=== PATIENT | female | born 1975 | race Caucasian/White ===

== ENCOUNTER 2019-03-05 17:43 | Inpatient (IN) | payer MEDICARE, SELFPAY ==
[2019-03-05 17:45] VITALS: BP 116/76; PULSE 97; RESP 24; TEMP 36.6; O2SAT 98; BMI 24.7
--- NOTE | 2019-03-05 18:14 | ED.DCSUM_ITS ---
- ER Visit Summary Date of Service: 03/05/19 Chief Complaint: Detox History of Present Illness: The patient is a 43 F who presents requesting detox from fentanyl. Patient states she uses at least 1 g per dose 4-5 times per day. Patient states her last use was approximately 2 hours prior to arrival. Damaris nt denies any suicidal homicidal ideations. Patient states she has chronic back pain. Patient denies any chest pain but admits to some shortness of breath. Patient denies any nausea or vomiting. Physical Examination: Vital signs are stable. Patient is afebrile. Patient is in no acute distress. Oral mucosa is pink and moist. Neck is supple. Trachea is midline. There is no JVD noted. Heart was regular rate and rhythm. Lungs are clear and equal bilateral. Abdomen is soft. Bowel sounds are normal. There is no tenderness. There is no guarding noted. Skin is warm dry. Cranial nerves II through XII are intact. There are no focal motor or sensory deficits noted. The remaining physical exam is within normal limits. Test Results: CBC and comprehensive metabolic profile within normal limits. Urinalysis does not show any evidence of urinary tract infection. Urine tox screen was positive for opiates. Serum alcohol level was obtained and is pending. Emergency Department Course and Treatment: Patient was given a dose of clonidine here. Case was discussed with the hospitalist. Patient will be admitted to the hospital. Disposition: Admit to hospital Impression: Substance abuse This note was generated with [employer] dictation software. It may contain incorrect words, spelling, and punctuation that were not noted in review of the chart prior to signing ED Disposition - Plan for ED Patient: Disposition: Acute Care Hospital [facility] Referrals: Christiano Huntley,Out of [Primary Care Provider] -
[2019-03-05 18:31] LABS: Bacteria 0 SEEN /hpf (None Seen); Mucous, Urine 0 SEEN /hpf (<or=2+); White Blood Cells 0 SEEN /hpf (0-5)
[2019-03-05 18:32] LABS: Color, Urine Yellow (Yellow); Glucose, Dipstick Normal (Normal); Ketone-Dipstick Negative (Negative); Leukocyte Esterase-Dipstick 25 /ul (Negative); Nitrite-Dipstick Negative (Negative); Occult Blood-Urine 10 /ul (Negative); Protein-Dipstick Negative (Negative); Specific Gravity, Urine 1.015 (1.002-1.030); Urine Bilirubin Dipstick Negative (Negative); Urine Clarity Clear (Clear); Urine Urobilinogen Normal (Normal)
[2019-03-05 18:40] LABS: Red Blood Cells-Urine 0-5 SEEN /hpf (0-5); Squamous Epithelial Cells - UA 0-5 SEEN /hpf (5-10)
[2019-03-05 18:55] LABS: Amphetamine Urine VISTA NEGATIVE (<1000 ng/mL); Barbiturate Urine VISTA NEGATIVE (< 200 ng/mL); Benzodiazepine Urine VISTA NEGATIVE (< 200 ng/mL); Cocaine Urine VISTA NEGATIVE (< 300 ng/mL); Ecstacy Urine VISTA NEGATIVE (< 500 ng/mL); Methadone Urine VISTA NEGATIVE (< 300 ng/mL); PCP Urine VISTA NEGATIVE (< 25 ng/mL); THC Urine VISTA NEGATIVE (< 50 ng/mL); Vista UDS pH Range 5
--- NOTE | 2019-03-05 19:10 | RAD_ITS ---
STUDY: X-RAY CHEST REASON FOR EXAM: Female, 43 years old. Shortness of breath. TECHNIQUE: PA and lateral views of the chest. COMPARISON: None. FINDINGS: The lungs are clear and expanded. There is no demonstrated pleural abnormality. Normal size heart. Normal mediastinum and rachna. Normal visualized pulmonary arteries. Normal visualized aortic arch and descending thoracic aorta. Normal visualized thoracic spine. There is mild anterior wedging of the L1 vertebra, age uncertain. Normal visualized ribs, clavicles, and shoulders. There is no demonstrated abnormality of the visualized soft tissue structures of the upper abdomen. RAD/Chest PA and Lateral IMPRESSION: 1. No acute cardiopulmonary disease. 2. Mild anterior wedging of the L1 vertebra, age uncertain. Electronically Signed: Edgardo Ayala MD at 19:26 EDT , Service support ,
[2019-03-05 19:15] LABS: Absolute Lymphocyte Count 3.78 X10^3/ul (0.83-4.51); Basophil# 0.03 X10^3/uL; Basophil% 0.3 % (0-1); Eosinophil# 0.21 X10^3/uL; Eosinophils% 2.4 % (0-5); Hematocrit 38.2 % (37-47); Hemoglobin 12.4 g/dl (12.0-15.0); Lymphocyte # 3.78 X10^3/ul (4.0); Lymphocyte % 42.7 % (19-41); Mean Corp Hgb Conc 32.5 g/gl (32-36); Mean Corpuscular Hgb 29.4 pg (27.0-32.0); Mean Corpuscular Volume 90.5 fL (81-99); Mean Platelet Vol. 9.5 fl (6.2-12.0); Monocyte# 0.88 X10^3/uL; Monocyte% 9.9 % (0-10); Neutrophil # 3.95 X10^3/uL (2.7-7.7); Neutrophil % 44.6 % (47-70); Platelet Count 269 K/mm3 (150-450); RBC Distribution Width CV 14.9 % (11.6-14.6); RBC Distribution Width SD 49.4 fl (35.1-43.9); Red Blood Count 4.22 M/mm3 (4.2-5.4); White Blood Count 8.9 K/mm3 (4.4-11.0)
[2019-03-05 19:16] LABS: POSITIVE COUNT NO; POSITIVE DIFFERENTIAL NO; POSITIVE MORPHOLOGY NO
[2019-03-05 19:29] LABS: ALB/GLOB Ratio 0.7 RATIO (0.9-2.4); AST(SGOT) 48 U/L (15-37); Alanine Aminotransfer ALT/SGPT 31 U/L (13-56); Albumin, Serum 3.2 g/dL (3.2-5.0); Alkaline Phosphatase 93 U/L (45-117); Anion Gap 5 (5-15); BUN 13 mg/dL (7-18); BUN/Creat Ratio 19.2 RATIO (10-20); Calcium,Total 8.7 mg/dL (8.5-10.1); Chloride 107 mmol/L (98-107); Creatinine, Serum 0.68 mg/dL (0.55-1.02); EST Glomerular Filtration Rate 101 mL/min (>60); Est Glom Filt Rate - Afr Amer 122 mL/min (>60); Estimated Creatinine Clearance 103.74 ml/min; Globulin 4.4 g/dL (2.2-4.2); Glucose 115 mg/dL (74-106); Potassium 4.5 mmol/L (3.5-5.1); Protein, Total 7.6 g/dL (6.4-8.2); Sodium Level 138 mmol/L (136-145)
[2019-03-05 19:33] VITALS: BMI 24.0
[2019-03-05] MEDS: cloNIDine HCl 0.1 MG Tablet PO (19:45)
[2019-03-05 19:51] VITALS: BP 118/78; PULSE 87; RESP 16; O2SAT 97
[2019-03-05 21:27] VITALS: RESP 16; O2SAT 98
--- NOTE | 2019-03-05 21:28 | PCM.HP.STD ---
Problem List (1) Opiate abuse, continuous Status: Chronic (2) Anxiety and depression Status: Chronic (3) IV drug abuse Status: Chronic (4) Hepatitis C Status: Chronic Qualifiers: Viral hepatitis chronicity: unspecified Hepatic coma status: without hepatic coma Qualified Code(s): B19.20 - Unspecified viral hepatitis C without hepatic coma (5) Tobacco use Status: Chronic (6) Asthma with COPD Status: Chronic (7) GERD (gastroesophageal reflux disease) Status: Chronic Qualifiers: Esophagitis presence: esophagitis presence not specified Qualified Code(s): K21.9 - Gastro-esophageal reflux disease without esophagitis History of Present Illness Date of Admission: 03/05/19 Chief Complaint: Opiate abuse, Withdrawal The patient is a 43 y/o F w/ PMHx: Anxiety and Depression/Bipolar disorder, Asthma/COPD, Tobacco use, Allergic Rhinitis, GERD, Hepatitis C, History of alcohol abuse now sober times 5 years, polysubstance abuse (prior history alcohol abuse, cannabis abuse, crack cocaine, heroin IV) w/ currently ongoing usage of IV fentanyl with at least 1 g daily with last usage approximately 2 PM on day of ED presentation with initial presentation to the ED without market withdrawal symptoms with administration of oral clonidine; however, upon evaluation patient continued to be interested in withdrawal treatment and noted onset of abdominal cramping and discomfort with nausea without emesis, fatigue, mild restlessness, hot and cold flashes, sweating. She notes that normally when she is in severe withdrawal she does have market emesis and has not had this as of yet. Work-up in the ED included T 97.8, heart rate 97, BP 116/76, respiratory rate 24, 98% on room air, CBC with WBC 8.9, heme globin 12.4, platelet 269 without market shift, CMP with glucose 115, AST/ALT 48/31, urinalysis unremarkable, UDS with positive opiate, pending alcohol level, chest x-ray with no acute cardiopulmonary disease was noted incidental mild anterior wedging L1 vertebra of unclear age. In the ED patient administered oral clonidine 0.1 mg x1. Past Medical History Past Medical History (Chronic Problems): Chronic Problems Opiate abuse, continuous (Chronic) Anxiety and depression (Chronic) IV drug abuse (Chronic) Hepatitis C (Chronic) Tobacco use (Chronic) Asthma with COPD (Chronic) GERD (gastroesophageal reflux disease) (Chronic) Allergies morphine Allergy (Verified 03/05/19 17:47) Rash Home Medications: Ambulatory Orders Medication Instructions Recorded Albuterol Inhaler [Ventolin Hfa] 2 puff INHALATION PRN PRN 03/05/19 Budesonide/Formoterol Fumarate 2 puff INHALATION BID 03/05/19 [Symbicort 160-4.5 Mcg Inhaler] Fluoxetine [Prozac] 10 mg PO DAILY 03/05/19 Fluticasone 0.05% [Flonase Nasal 1 spray NASAL BID 03/05/19 [place]] Gabapentin 800 mg PO TID 03/05/19 Loratadine/Pseudoephedrine 1 tab PO DAILY 03/05/19 [Alavert D-12 Allergy-Sinus Tab] Montelukast Sodium [Singulair] 10 mg PO QHS 03/05/19 Pantoprazole Sodium [Protonix] 20 mg PO BID 03/05/19 Quetiapine Fumarate [Seroquel] 200 mg PO QHS 03/05/19 Surgical History: - - Tonsillectomy, bilateral tubal ligation, history of trauma with left upper extremity as well as left lower extremity hardware and intervention. Psychiatric History: Anxiety, Depression [employer] History: No pertinent [employer] history Lives: Spouse/ Significant Other - Patient lives with a significant who is also a substance abuser which was discussed at length. Discussed that patient for best outcome would necessitate not returning to this living situation and best if not return to this relationship at this time. Smoking Status: Current every day smoker - 1 pack/day cigarette tobacco usage. Tobacco Use: Cigarettes Alcohol: Sober - Patient has been sober times 5 years. Drugs: - - Patient has a history of polysubstance abuse with several agents but has been using consistently for several months to years now IV fentanyl. - *Family History Maternal History Items: - - Patient notes a maternal family history of diabetes and hypertension. Paternal History Items: - - Patient notes a paternal family history of hypertension and hyperlipidemia. Review of Systems Constitutional: Reports: Anorexia, Chills, Malaise, Weakness, Fatigue. Denies: Fever, Weight Change HEENT: Reports: Nasal Congestion, Post Nasal Drip, Sinus Drainage. Denies: Head Aches, Sinus Congestion Cardiovascular: Denies: Chest Pain, Palpitations Respiratory: Denies: Cough, Shortness of breath at rest, Sputum production Gastrointestinal: Reports: Abdominal Pain, Nausea. Denies: Vomiting Genitourinary: Denies: Dysuria Musculoskeletal: Reports: Joint Pain. Denies: Joint Tenderness Skin: Denies: Rash, Wounds Neurological: Denies: Numbness, Tingling, Focal weakness Psychiatric: Reports: Anxiety, Depression. Denies: Homicidal Ideations, Suicidal Ideations Endocrine: Reports: Heat/ Cold Intolerance Hematologic/ Lymphatic: Denies: Easy Bruising, Easy Bleeding VTE Information - Inpt Only VTE Present on Admission: No VTE Mechan Device Prophylaxis: None VTE Pharm Prophylaxis ordered?: No Reason prophylaxis not ordered:: Treatment Not Indicated Subjective: Seated upright in the ED bed, fatigued appearance, notes ongoing abdominal cramping and very mild nausea at this time. Objective: Physical Examination: General: awake, alert, oriented x 3 and cooperative, seated upright in bed in no apparent distress, notes withdrawal symptoms have increased but upon ED presentation had recently used IV fentanyl. Skin: normal color, turgor, no icterus, cyanosis except notable ecchymoses and track ryan primarily to the upper extremities. HEENT: AT/NC, EOMI, PERRLA, mildly dry MM, no carotid bruits or JVD noted. Lungs: CTA bilaterally, moderate effort, mild decrease BL bases, no rales, ronchi or wheezing. Heart: Regular rate and rhythm; no gallop, rub audible. Abdomen: soft, NTTP, ND, hyperactive BS, no HSM. Extremities: no cyanosis, clubbing, or edema. Neurological: patient awake, alert, oriented x 3; cognitive function intact; pupils equally reactive to light and accomodation; cranial nerves II-XII grossly normal, moving all 4 extremities, no focal deficits, strength mildly globally decreased. Psychiatric: affect appears fatigued, no acute evidence of depressive or anxiety feelings. - Physical Exam Vital Signs Temp Pulse Resp BP Pulse Ox 97.8 F 87 16 118/78 98 03/05/19 17:45 03/05/19 19:51 03/05/19 21:27 03/05/19 19:51 03/05/19 21:27 Oxygen Delivery Method Room Air Weight: 157 lb 10.088 oz Body Mass Index (BMI) 24.7 Laboratory Tests Past 24 Hrs 03/05/19 03/05/19 03/05/19 18:00 18:00 18:45 WBC 8.9 RBC 4.22 Hgb 12.4 Hct 38.2 MCV 90.5 MCH 29.4 MCHC 32.5 RDW 14.9 H RDW Differential 49.4 H Plt Count 269 MPV 9.5 Immature Gran % (Auto) 0.100 Neut % (Auto) 44.6 L Lymph % (Auto) 42.7 H [facility] % (Auto) 9.9 Eos % (Auto) 2.4 Baso % (Auto) 0.3 Absolute Neuts (auto) 4.0 Absolute Lymphs (auto) 3.78 Total Counted Not Reportable Sodium Potassium Chloride Carbon Dioxide Anion Gap BUN Creatinine Estim Creat Clear Calc Est GFR (MDRD) Af Amer Est GFR (MDRD) Non-Af BUN/Creatinine Ratio Glucose Calcium Total Bilirubin AST ALT Alkaline Phosphatase Total Protein Albumin Globulin Albumin/Globulin Ratio Urine Color Yellow Urine Clarity Clear Urine pH 6.0 Ur Specific [place] 1.015 Urine Protein Negative Urine Glucose (UA) Normal Urine Ketones Negative Urine Occult Blood 10 H Urine Nitrite Negative Urine Bilirubin Negative Urine Urobilinogen Normal Ur Leukocyte Esterase 25 H Urine RBC 0-5 SEEN Urine WBC 0 SEEN Ur Squamous Epith Cells 0-5 SEEN Urine Bacteria 0 SEEN Urine Mucus 0 SEEN Urine Opiates Screen POSITIVE H Urine Methadone Screen NEGATIVE Ur Barbiturates Screen NEGATIVE Ur Phencyclidine Scrn NEGATIVE Ur Amphetamines Screen NEGATIVE U Methamphetamin-MDMA NEGATIVE U Benzodiazepines Scrn NEGATIVE Urine Cocaine Screen NEGATIVE U Cannabinoids Screen NEGATIVE Ur Drug Screen Comment Ethyl Alcohol 03/05/19 03/05/19 03/05/19 18:45 18:45 20:10 WBC RBC Hgb Hct MCV MCH MCHC RDW RDW Differential Plt Count MPV Immature Gran % (Auto) Neut % (Auto) Lymph % (Auto) [facility] % (Auto) Eos % (Auto) Baso % (Auto) Absolute Neuts (auto) Absolute Lymphs (auto) Total Counted Sodium 138 Potassium 4.5 Chloride 107 Carbon Dioxide 26.0 Anion Gap 5 BUN 13 Creatinine 0.68 Estim Creat Clear Calc 103.74 Est GFR (MDRD) Af Amer 122 Est GFR (MDRD) Non-Af 101 BUN/Creatinine Ratio 19.2 Glucose 115 H Calcium 8.7 Total Bilirubin 0.20 AST 48 H ALT 31 Alkaline Phosphatase 93 Total Protein 7.6 Albumin 3.2 Globulin 4.4 H Albumin/Globulin Ratio 0.7 L Urine Color Urine Clarity Urine pH Ur Specific [place] Urine Protein Urine Glucose (UA) Urine Ketones Urine Occult Blood Urine Nitrite Urine Bilirubin Urine Urobilinogen Ur Leukocyte Esterase Urine RBC Urine WBC Ur Squamous Epith Cells Urine Bacteria Urine Mucus Urine Opiates Screen Urine Methadone Screen Ur Barbiturates Screen Ur Phencyclidine Scrn Ur Amphetamines Screen U Methamphetamin-MDMA U Benzodiazepines Scrn Urine Cocaine Screen U Cannabinoids Screen Ur Drug Screen Comment Ethyl Alcohol Cancelled Pending Assessment/Plan The patient is a 43 y/o F w/ PMHx: Anxiety and Depression/Bipolar disorder, Asthma/COPD, Tobacco use, Allergic Rhinitis, GERD, Hepatitis C, History of alcohol abuse now sober times 5 years, polysubstance abuse w/ currently ongoing usage of IV fentanyl with at least 1 g daily with last usage approximately 2 PM on day of ED presentation with initial presentation to the ED without market withdrawal symptoms with administration of oral clonidine; however, upon evaluation patient continued to be interested in withdrawal treatment and noted onset of abdominal cramping and discomfort with nausea without emesis, fatigue, mild restlessness, hot and cold flashes, sweating. (1) Acute Opiate Withdrawal: Will admit to MS, given currently only mild withdrawal appearance and timeline of last intake unclear, will admit as observation per discussion with supervising industrial staff nurse, routine labs obtained in the ED, given now onset of withdrawal symptoms, will initiate and continue on [facility] service protocol with tapering course of Subutex, as needed Seroquel, Librium, Sinemet, Catapres, Bentyl, Vistaril, IV fluids, IV antiemetics, Tylenol as needed for pain. Once patient clinically improved and completion of taper nearing will plan [facility] assistance for transition to next level of rehabilitation care. (2) Polysubstance Abuse, IVDA Hx, History of Hepatitis C, Chronic: Patient currently not candidate for hep C treatment currently as needs to be clean, sober x 6 months, documented attendance NA or AA meetings, counseling and ongoing negative drug screens. Once appropriate GI, ID to initiate. HIV, hepatitis panel to assess for co-infection pending. Encouraged PCP establishment and follow-up. (3) Tobacco Abuse: Encouraged cessation, inpatient consultation per RT, NR if desired. (4) Chronic Asthma/COPD: ATC duonebs, PRN albuterol, HOB, IS parameters. (5) Anxiety and depression/bipolar disorder: Continue home Prozac, Seroquel regimen. (6) Allergic rhinitis: Continue home Singulair. Given patient abuse history recommendation for discontinuation of pseudoephedrine on a routine basis. (7) GERD: PPI. (8) DVT Prophylaxis: Low risk, ambulation. Code Visit OBSV E&M: 96656 Initial observation care L3
[2019-03-05 21:38] LABS: Alcohol, Blood (Medical)-Serum < 3.0 mg/dL
[2019-03-05 23:42] VITALS: BMI 25.4
[2019-03-05 23:47] VITALS: BMI 25.4
[2019-03-06] VITALS (10 sets, daily range): BP systolic 111–125; BP diastolic 57–73; PULSE 82–107; RESP 16–22; TEMP 36.5–36.8; O2SAT 94–97
[2019-03-06] MEDS: Methocarbamol 750 MG Tablet PO ×3 (00:53→13:10)
[2019-03-06] MEDS: chlordiazePOXIDE 25 MG Capsule PO ×6 (00:53→20:53)
[2019-03-06] MEDS: Buprenorphine HCl 2 MG TAB.SUBL SL ×3 (00:53→17:14)
[2019-03-06 01:19] LABS: HIV - WCH Non-Reactive (Nonreactive)
[2019-03-06] MEDS: Gabapentin 800 MG Tablet PO ×3 (05:13→22:10)
[2019-03-06] MEDS: Ondansetron ODT 4 MG Tablet PO ×2 (05:13→13:09)
[2019-03-06] MEDS: Ipratropium/Albuterol Sulfate 3 ML AMPUL.NEB INHALATION ×3 (06:37→19:05)
[2019-03-06] MEDS: Dicyclomine 10 MG Capsule 20 MG PO ×2 (07:20→17:14)
[2019-03-06] MEDS: Pramipexole Di-HCl 0.25 MG Tablet PO (07:20)
[2019-03-06] MEDS: Pantoprazole Sodium 20 MG Tablet PO ×2 (09:21→22:10)
[2019-03-06] MEDS: Fluticasone 0.05% 1 SPRAY NASAL.SRY NASAL ×2 (09:22→22:10)
[2019-03-06] MEDS: FLUoxetine 10 MG Capsule PO (09:22)
[2019-03-06] MEDS: Ibuprofen 600 MG Tablet PO ×2 (09:25→20:56)
[2019-03-06] MEDS: cloNIDine HCl 0.1 MG Tablet PO (13:10)
--- NOTE | 2019-03-06 16:24 | PCM.PROGNOTE ---
Subjective: All events of the past 24 hours of been reviewed. She is afebrile with stable vital signs. She denies diarrhea, abdominal cramping, restless leg. She slept well last night. Her only complaint is mild nausea. All lab was personally reviewed. Objective: PHYSICAL EXAM: GENERAL: alert, oriented X 3, Cooperative, NAD ORAL: moist mucosa, no mucosal lesions NECK: No JVD, supple, trachea midline LUNGS: CTA, symmetric chest expansion HEART: RRR, Normal S1 and S2, no rub, no gallop ABDOMEN: soft, NT, ND, BS present, no guarding with palpation EXTREMITIES: no edema, no cyanosis, no calf tenderness SKIN: No rashes, no breakdown NEUROLOGIC: no focal neurologic deficits PSYCH: appropriate, normal affect, pleasant - Physical Exam Vital Signs Temp Pulse Resp BP Pulse Ox 98.2 F 90 18 125/72 H 95 03/06/19 13:10 03/06/19 13:10 03/06/19 13:10 03/06/19 13:10 03/06/19 09:25 Oxygen Delivery Method Room Air Weight: 162 lb 7.691 oz Body Mass Index (BMI) 25.4 Intake and Output for Last 24 Hours 03/04/19 03/05/19 03/06/19 23:59 23:59 23:59 Intake Total 480 / 480 Balance 480 / 480 Laboratory Tests Past 24 Hrs 03/05/19 03/05/19 03/05/19 18:00 18:00 18:45 WBC 8.9 RBC 4.22 Hgb 12.4 Hct 38.2 MCV 90.5 MCH 29.4 MCHC 32.5 RDW 14.9 H RDW Differential 49.4 H Plt Count 269 MPV 9.5 Immature Gran % (Auto) 0.100 Neut % (Auto) 44.6 L Lymph % (Auto) 42.7 H [place] % (Auto) 9.9 Eos % (Auto) 2.4 Baso % (Auto) 0.3 Absolute Neuts (auto) 4.0 Absolute Lymphs (auto) 3.78 Total Counted Not Reportable Sodium Potassium Chloride Carbon Dioxide Anion Gap BUN Creatinine Estim Creat Clear Calc Est GFR (MDRD) Af Amer Est GFR (MDRD) Non-Af BUN/Creatinine Ratio Glucose Calcium Total Bilirubin AST ALT Alkaline Phosphatase Total Protein Albumin Globulin Albumin/Globulin Ratio Urine Color Yellow Urine Clarity Clear Urine pH 6.0 Ur Specific [place] 1.015 Urine Protein Negative Urine Glucose (UA) Normal Urine Ketones Negative Urine Occult Blood 10 H Urine Nitrite Negative Urine Bilirubin Negative Urine Urobilinogen Normal Ur Leukocyte Esterase 25 H Urine RBC 0-5 SEEN Urine WBC 0 SEEN Ur Squamous Epith Cells 0-5 SEEN Urine Bacteria 0 SEEN Urine Mucus 0 SEEN Urine Opiates Screen POSITIVE H Urine Methadone Screen NEGATIVE Ur Barbiturates Screen NEGATIVE Ur Phencyclidine Scrn NEGATIVE Ur Amphetamines Screen NEGATIVE U Methamphetamin-MDMA NEGATIVE U Benzodiazepines Scrn NEGATIVE Urine Cocaine Screen NEGATIVE U Cannabinoids Screen NEGATIVE Ur Drug Screen Comment Ethyl Alcohol Hepatitis A IgM Ab Hepatitis A Ab Total Hep Bs Antigen Hep B Core Total Ab Hep B Core IgM Ab HIV 1&2 Antibody 03/05/19 03/05/19 03/05/19 18:45 18:45 20:10 WBC RBC Hgb Hct MCV MCH MCHC RDW RDW Differential Plt Count MPV Immature Gran % (Auto) Neut % (Auto) Lymph % (Auto) [place] % (Auto) Eos % (Auto) Baso % (Auto) Absolute Neuts (auto) Absolute Lymphs (auto) Total Counted Sodium 138 Potassium 4.5 Chloride 107 Carbon Dioxide 26.0 Anion Gap 5 BUN 13 Creatinine 0.68 Estim Creat Clear Calc 103.74 Est GFR (MDRD) Af Amer 122 Est GFR (MDRD) Non-Af 101 BUN/Creatinine Ratio 19.2 Glucose 115 H Calcium 8.7 Total Bilirubin 0.20 AST 48 H ALT 31 Alkaline Phosphatase 93 Total Protein 7.6 Albumin 3.2 Globulin 4.4 H Albumin/Globulin Ratio 0.7 L Urine Color Urine Clarity Urine pH Ur Specific [place] Urine Protein Urine Glucose (UA) Urine Ketones Urine Occult Blood Urine Nitrite Urine Bilirubin Urine Urobilinogen Ur Leukocyte Esterase Urine RBC Urine WBC Ur Squamous Epith Cells Urine Bacteria Urine Mucus Urine Opiates Screen Urine Methadone Screen Ur Barbiturates Screen Ur Phencyclidine Scrn Ur Amphetamines Screen U Methamphetamin-MDMA U Benzodiazepines Scrn Urine Cocaine Screen U Cannabinoids Screen Ur Drug Screen Comment Ethyl Alcohol Cancelled < 3.0 Hepatitis A IgM Ab Hepatitis A Ab Total Hep Bs Antigen Hep B Core Total Ab Hep B Core IgM Ab HIV 1&2 Antibody 03/05/19 03/06/19 20:10 06:30 WBC RBC Hgb Hct MCV MCH MCHC RDW RDW Differential Plt Count MPV Immature Gran % (Auto) Neut % (Auto) Lymph % (Auto) [place] % (Auto) Eos % (Auto) Baso % (Auto) Absolute Neuts (auto) Absolute Lymphs (auto) Total Counted Sodium Potassium Chloride Carbon Dioxide Anion Gap BUN Creatinine Estim Creat Clear Calc Est GFR (MDRD) Af Amer Est GFR (MDRD) Non-Af BUN/Creatinine Ratio Glucose Calcium Total Bilirubin AST ALT Alkaline Phosphatase Total Protein Albumin Globulin Albumin/Globulin Ratio Urine Color Urine Clarity Urine pH Ur Specific [place] Urine Protein Urine Glucose (UA) Urine Ketones Urine Occult Blood Urine Nitrite Urine Bilirubin Urine Urobilinogen Ur Leukocyte Esterase Urine RBC Urine WBC Ur Squamous Epith Cells Urine Bacteria Urine Mucus Urine Opiates Screen Urine Methadone Screen Ur Barbiturates Screen Ur Phencyclidine Scrn Ur Amphetamines Screen U Methamphetamin-MDMA U Benzodiazepines Scrn Urine Cocaine Screen U Cannabinoids Screen Ur Drug Screen Comment Ethyl Alcohol Hepatitis A IgM Ab Pending Hepatitis A Ab Total Pending Hep Bs Antigen Pending Hep B Core Total Ab Pending Hep B Core IgM Ab Pending HIV 1&2 Antibody Non-Reactive Medical Necessity - Tobacco Use Smoking Status: Current every day smoker Tobacco Use: Cigarettes Assessment/Plan All Active Problems Opiate withdrawal (Acute) Impressions 1. Acute opiate withdrawal 2. Bipolar disorder 3. Opiate dependence-fentanyl 4. Tobacco dependence 5. Chronic asthma/COPD Continue [facility] protocol for acute opiate withdrawal
[2019-03-06] MEDS: QUEtiapine 100 MG Tablet 200 MG PO (22:10)
[2019-03-06] MEDS: Montelukast 10 MG Tablet PO (22:10)
[2019-03-07] VITALS (8 sets, daily range): BP systolic 105–126; BP diastolic 69–91; PULSE 84–104; RESP 16–20; TEMP 36.6–37.1
[2019-03-07] MEDS: Buprenorphine HCl 2 MG TAB.SUBL SL ×3 (00:38→16:40)
[2019-03-07] MEDS: Gabapentin 800 MG Tablet PO ×2 (06:28→15:34)
[2019-03-07] MEDS: Ipratropium/Albuterol Sulfate 3 ML AMPUL.NEB INHALATION ×3 (07:01→19:01)
--- NOTE | 2019-03-07 07:57 | PCM.PROGNOTE ---
Subjective: All events of the past 24 hours of been reviewed. Vital signs are stable. She is afebrile. C/O constipation. no diarrhea. No nausea. She had a little restless leg - Physical Exam General: Alert, Oriented x3, Cooperative, No apparent distress HEENT: Atraumatic Oral: Moist Mucosa, - - Poor dentition Lungs: Clear to auscultation, No rhonchi, No wheeze, No rales Cardiovascular: Regular rate, Regular Rhythm, Normal S1, Normal S2, No murmurs, No Gallop Abdomen: Bowel Sounds Present, Soft, Non Tender, Non-Distended Extremities: No clubbing, No cyanosis, No edema, - - No evidence of cellulitis Neurological: Cranial nerves II-XII grossly intact, Neuro grossly intact Psych/Mental Status: Normal Affect, Appropriate Vital Signs Temp Pulse Resp BP Pulse Ox 98.0 F 88 18 126/70 H 95 03/07/19 06:00 03/07/19 06:00 03/07/19 06:00 03/07/19 06:00 03/06/19 09:25 Oxygen Delivery Method Room Air Weight: 162 lb 7.691 oz Body Mass Index (BMI) 25.4 Intake and Output for Last 24 Hours 03/05/19 03/06/19 03/07/19 23:59 23:59 23:59 Intake Total 480 / 480 360 / 360 Balance 480 / 480 360 / 360 Medical Necessity - Tobacco Use Smoking Status: Current every day smoker Tobacco Use: Cigarettes Assessment/Plan All Active Problems Opiate withdrawal (Acute) Impressions 1. Acute opiate withdrawal 2. Bipolar disorder 3. Opiate dependence-fentanyl 4. Tobacco dependence 5. Chronic asthma/COPD Continue [facility] protocol for acute opiate withdrawal Code Visit Inpatient E&M: 27597 Subs Hosp L2
[2019-03-07] MEDS: Pantoprazole Sodium 20 MG Tablet PO ×2 (08:50→21:04)
[2019-03-07] MEDS: FLUoxetine 10 MG Capsule PO (08:50)
[2019-03-07] MEDS: Fluticasone 0.05% 1 SPRAY NASAL.SRY NASAL ×2 (08:51→21:04)
[2019-03-07] MEDS: Albuterol 2.5 MG/3 ML VIAL.NEB. INHALATION (10:44)
[2019-03-07] MEDS: Senna Tablet 1 TABLET PO (15:36)
[2019-03-07] MEDS: Ibuprofen 600 MG Tablet PO (18:24)
[2019-03-07] MEDS: Polyethylene Glycol 3350 17 GM PACKET PO (18:24)
[2019-03-07] MEDS: Montelukast 10 MG Tablet PO (21:03)
[2019-03-07] MEDS: Gabapentin 600 MG Tablet PO (21:03)
[2019-03-07] MEDS: QUEtiapine 100 MG Tablet 200 MG PO (23:18)
[2019-03-07] MEDS: cloNIDine HCl 0.1 MG Tablet PO (23:19)
[2019-03-08] MEDS: Ibuprofen 600 MG Tablet PO ×2 (01:03→09:25)
[2019-03-08] MEDS: Buprenorphine HCl 2 MG TAB.SUBL SL (04:41)
[2019-03-08 06:32] VITALS: BP 102/51; PULSE 74; RESP 16; TEMP 36.5
[2019-03-08] MEDS: Gabapentin 600 MG Tablet PO (06:34)
[2019-03-08 06:46] VITALS: PULSE 85; RESP 20
[2019-03-08] MEDS: Ipratropium/Albuterol Sulfate 3 ML AMPUL.NEB INHALATION (06:46)
[2019-03-08 09:19] VITALS: BP 118/95; PULSE 102; RESP 18; TEMP 36.8
[2019-03-08] MEDS: FLUoxetine 20 MG Capsule PO (09:25)
[2019-03-08] MEDS: Pantoprazole Sodium 20 MG Tablet PO (09:25)
[2019-03-08] MEDS: Fluticasone 0.05% 1 SPRAY NASAL.SRY NASAL (09:26)
[2019-03-08] MEDS: Polyethylene Glycol 3350 17 GM PACKET PO (09:28)
[2019-03-08 09:30] VITALS: PULSE 96
[2019-03-08] MEDS: hydrOXYzine PAM 25 MG Capsule 50 MG PO (10:50)
--- NOTE | 2019-03-08 11:21 | CASEMGMT ---
Social Work Note ANEUDY updated by Carmen with [place] that pt needs court document faxed to [place], probation court, (fax:[phone]). SW met with pt, introduced self and role at [facility]. Pt is alert and orientated x4. Pt gave this worker permission to fax letter to probation court. Pt signed release of information, document on pt's chart. SW completed court document and faced to Mellisa at [facility] [address]. Letter placed on pt's chart. Danita Hood PAEDIATRICIAN, [employer]LECT[employer]ICIAN [employer]ONT
--- NOTE | 2019-03-08 11:52 | PCM.DC ---
- Discharge Diagnoses Current Active Problems: Current Active and Chronic Problems Opiate abuse, continuous (Chronic) Anxiety and depression (Chronic) IV drug abuse (Chronic) Hepatitis C (Chronic) Tobacco use (Chronic) Asthma with COPD (Chronic) GERD (gastroesophageal reflux disease) (Chronic) You will use the following diet at home:: No restrictions Your food should be the consistency of: Regular Your liquids should be the consistency of: Regular/Thin Discharge Activity: Return to Normal Activity May resume sexual activity in: No Restrictions Weight Bearing Status: Full weight bearing Call your doctor if you observe: Fever of 101 or Higher, Inability to urinate, Inability to have a bowel movement, Shortness of breath, Dizziness, Fainting spells, Uncontrolled pain Additional Instructions: I have given you a prescription for a nicotine patch if you would like it to help stop smoking. We have a program for smoking cessation at [facility] and all you need to do is call the hospital at [phone] and ask for the smoking cessation coordinator. the results of the hepatitis panel are not back yet but if you call the hospital tomorrow and ask for Dr. Dipika Chirinos I will look them up for you. Good . It was a pleasure meeting you and if you need additional help please do not hesitate to come back. Pending Tests on Discharge: hepatitis panel. Allergies/Adverse Reactions: Allergies morphine Allergy (Verified 03/05/19 23:45) Rash Medications to take at Discharge Albuterol Inhaler [Ventolin Hfa] 2 puff INHALATION PRN PRN 03/05/19 Budesonide/Formoterol Fumarate [Symbicort 160-4.5 Mcg Inhaler] 2 puff INHALATION BID 03/05/19 Fluticasone 0.05% [Flonase Nasal [place]] 1 spray NASAL BID 03/05/19 Gabapentin 800 mg PO TID 03/05/19 Loratadine/Pseudoephedrine [Alavert D-12 Allergy-Sinus Tab] 1 tab PO DAILY 03/05/19 Montelukast Sodium [Singulair] 10 mg PO QHS 03/05/19 Pantoprazole Sodium [Protonix] 20 mg PO BID 03/05/19 Quetiapine Fumarate [Seroquel] 200 mg PO QHS 03/05/19 Fluoxetine [Prozac] 20 mg PO DAILY #30 cap 03/08/19 Ibuprofen [Motrin] 600 mg PO Q8H #90 tab 03/08/19 Nicotine [Nicoderm Cq] 21 mg TRANSDERM. DAILY #28 patch 03/08/19 The following prescriptions were given: Fluoxetine [Prozac] 20 mg PO DAILY #30 cap Ibuprofen [Motrin] 600 mg PO Q8H #90 tab Nicotine [Nicoderm Cq] 21 mg TRANSDERM. DAILY #28 patch Primary Care Physician: [facility] Doctor,Out of [Primary Care Provider] - Test Results: Test results from this visit will be discussed in further detail at your follow-up appointment, if applicable. Please Follow Up With: Dr. Felix Ashton When: March 18 at 1:15 Proposed Discharge Date: 03/08/19
--- NOTE | 2019-03-08 11:57 | DCINST_ITS ---
- Discharge Diagnoses Current Active Problems: Current Active and Chronic Problems Opiate abuse, continuous (Chronic) Anxiety and depression (Chronic) IV drug abuse (Chronic) Hepatitis C (Chronic) Tobacco use (Chronic) Asthma with COPD (Chronic) GERD (gastroesophageal reflux disease) (Chronic) You will use the following diet at home:: No restrictions Your food should be the consistency of: Regular Your liquids should be the consistency of: Regular/Thin Discharge Activity: Return to Normal Activity May resume sexual activity in: No Restrictions Weight Bearing Status: Full weight bearing Call your doctor if you observe: Fever of 101 or Higher, Inability to urinate, Inability to have a bowel movement, Shortness of breath, Dizziness, Fainting spells, Uncontrolled pain Additional Instructions: I have given you a prescription for a nicotine patch if you would like it to help stop smoking. We have a program for smoking cessation at [facility] and all you need to do is call the hospital at [phone] and ask for the smoking cessation coordinator. the results of the hepatitis panel are not back yet but if you call the hospital tomorrow and ask for Dr. Dipika Chirinos I will look them up for you. Good . It was a pleasure meeting you and if you need additional help please do not hesitate to come back. Pending Tests on Discharge: hepatitis panel. Allergies/Adverse Reactions: Allergies morphine Allergy (Verified 03/05/19 23:45) Rash Medications to take at Discharge Albuterol Inhaler [Ventolin Hfa] 2 puff INHALATION PRN PRN 03/05/19 Budesonide/Formoterol Fumarate [Symbicort 160-4.5 Mcg Inhaler] 2 puff INHALATION BID 03/05/19 Fluticasone 0.05% [Flonase Nasal [place]] 1 spray NASAL BID 03/05/19 Gabapentin 800 mg PO TID 03/05/19 Loratadine/Pseudoephedrine [Alavert D-12 Allergy-Sinus Tab] 1 tab PO DAILY 03/05/19 Montelukast Sodium [Singulair] 10 mg PO QHS 03/05/19 Pantoprazole Sodium [Protonix] 20 mg PO BID 03/05/19 Quetiapine Fumarate [Seroquel] 200 mg PO QHS 03/05/19 Fluoxetine [Prozac] 20 mg PO DAILY #30 cap 03/08/19 Ibuprofen [Motrin] 600 mg PO Q8H #90 tab 03/08/19 Nicotine [Nicoderm Cq] 21 mg TRANSDERM. DAILY #28 patch 03/08/19 The following prescriptions were given: Fluoxetine [Prozac] 20 mg PO DAILY #30 cap Ibuprofen [Motrin] 600 mg PO Q8H #90 tab Nicotine [Nicoderm Cq] 21 mg TRANSDERM. DAILY #28 patch Primary Care Physician: [facility] Doctor,Out of [Primary Care Provider] - Test Results: Test results from this visit will be discussed in further detail at your follow- up appointment, if applicable. Please Follow Up With: Dr. Felix Ashton When: March 18 at 1:15 Proposed Discharge Date: 03/08/19
--- NOTE | 2019-03-08 12:06 | DS.PCM_ITS ---
Discharge Date and Diagnosis Date of Admission: 03/05/19 Date of Discharge: 03/08/19 - Primary Discharge Diagnosis Active and Suspected Problems Opiate withdrawal (Acute) - Secondary Discharge Diagnosis Chronic Problems Bipolar depression (Chronic) Opiate abuse, continuous (Chronic) Anxiety and depression (Chronic) IV drug abuse (Chronic) Hepatitis C (Chronic) Tobacco use (Chronic) Asthma with COPD (Chronic) GERD (gastroesophageal reflux disease) (Chronic) Hospital Course and Treatment Imaging Results: Clinical Impression(s) from Imaging Studies Chest X-Ray 03/05/19 19:10 IMPRESSION: 1. No acute cardiopulmonary disease. 2. Mild anterior wedging of the L1 vertebra, age uncertain. Electronically Signed: Edgardo Ayala MD at 19:26 EDT , Service support , Laboratory Tests 03/05/19 03/05/19 03/05/19 Range/Units 20:10 20:10 18:45 WBC (4.4-11.0) K/mm3 RBC (4.2-5.4) M/mm3 Hgb (12.0-15.0) g/dl Hct (37-47) % MCV (81-99) fL MCH (27.0-32.0) pg MCHC (32-36) g/gl RDW (11.6-14.6) % RDW Differential (35.1-43.9) fl Plt Count (150-450) K/mm3 MPV (6.2-12.0) fl Immature Gran % (Auto) (0.0-0.9) % Neut % (Auto) (47-70) % Lymph % (Auto) (19-41) % [place] % (Auto) (0-10) % Eos % (Auto) (0-5) % Baso % (Auto) (0-1) % Absolute Neuts (auto) (2.0-7.7) X10^3/uL Absolute Lymphs (auto) (0.83-4.51) X10^3/ul Total Counted Sodium (136-145) mmol/L Potassium (3.5-5.1) mmol/L Chloride (98-107) mmol/L Carbon Dioxide (21.0-32.0) mmol/L Anion Gap (5-15) BUN (7-18) mg/dL Creatinine (0.55-1.02) mg/dL Estim Creat Clear Calc ml/min Est GFR (MDRD) Af Amer (>60) mL/min Est GFR (MDRD) Non-Af (>60) mL/min BUN/Creatinine Ratio (10-20) RATIO Glucose (74-106) mg/dL Calcium (8.5-10.1) mg/dL Total Bilirubin (0.20-1.00) mg/dL AST (15-37) U/L ALT (13-56) U/L Alkaline Phosphatase (45-117) U/L Total Protein (6.4-8.2) g/dL Albumin (3.2-5.0) g/dL Globulin (2.2-4.2) g/dL Albumin/Globulin Ratio (0.9-2.4) RATIO Urine Color (Yellow) Urine Clarity (Clear) Urine pH (5.0 - 8.0) Ur Specific [place] (1.002-1.030) Urine Protein (Negative) mg/dl Urine Glucose (UA) (Normal) mg/dl Urine Ketones (Negative) mg/dl Urine Occult Blood (Negative) /ul Urine Nitrite (Negative) Urine Bilirubin (Negative) mg/dL Urine Urobilinogen (Normal) mg/dl Ur Leukocyte Esterase (Negative) /ul Urine RBC (0-5) /hpf Urine WBC (0-5) /hpf Ur Squamous Epith Cells (5-10) /hpf Urine Bacteria (None Seen) /hpf Urine Mucus (<or=2+) /hpf Urine Opiates Screen (< 300 ng/mL) Urine Methadone Screen (< 300 ng/mL) Ur Barbiturates Screen (< 200 ng/mL) Ur Phencyclidine Scrn (< 25 ng/mL) Ur Amphetamines Screen (<1000 ng/mL) U Methamphetamin-MDMA (< 500 ng/mL) U Benzodiazepines Scrn (< 200 ng/mL) Urine Cocaine Screen (< 300 ng/mL) U Cannabinoids Screen (< 50 ng/mL) Ur Drug Screen Comment Ethyl Alcohol < 3.0 Cancelled HIV 1&2 Antibody Non-Reactive (Nonreactive) 03/05/19 03/05/19 03/05/19 Range/Units 18:45 18:45 18:00 WBC 8.9 (4.4-11.0) K/mm3 RBC 4.22 (4.2-5.4) M/mm3 Hgb 12.4 (12.0-15.0) g/dl Hct 38.2 (37-47) % MCV 90.5 (81-99) fL MCH 29.4 (27.0-32.0) pg MCHC 32.5 (32-36) g/gl RDW 14.9 H (11.6-14.6) % RDW Differential 49.4 H (35.1-43.9) fl Plt Count 269 (150-450) K/mm3 MPV 9.5 (6.2-12.0) fl Immature Gran % (Auto) 0.100 (0.0-0.9) % Neut % (Auto) 44.6 L (47-70) % Lymph % (Auto) 42.7 H (19-41) % [place] % (Auto) 9.9 (0-10) % Eos % (Auto) 2.4 (0-5) % Baso % (Auto) 0.3 (0-1) % Absolute Neuts (auto) 4.0 (2.0-7.7) X10^3/uL Absolute Lymphs (auto) 3.78 (0.83-4.51) X10^3/ul Total Counted Not Reportable Sodium 138 (136-145) mmol/L Potassium 4.5 (3.5-5.1) mmol/L Chloride 107 (98-107) mmol/L Carbon Dioxide 26.0 (21.0-32.0) mmol/L Anion Gap 5 (5-15) BUN 13 (7-18) mg/dL Creatinine 0.68 (0.55-1.02) mg/dL Estim Creat Clear Calc 103.74 ml/min Est GFR (MDRD) Af Amer 122 (>60) mL/min Est GFR (MDRD) Non-Af 101 (>60) mL/min BUN/Creatinine Ratio 19.2 (10-20) RATIO Glucose 115 H (74-106) mg/dL Calcium 8.7 (8.5-10.1) mg/dL Total Bilirubin 0.20 (0.20-1.00) mg/dL AST 48 H (15-37) U/L ALT 31 (13-56) U/L Alkaline Phosphatase 93 (45-117) U/L Total Protein 7.6 (6.4-8.2) g/dL Albumin 3.2 (3.2-5.0) g/dL Globulin 4.4 H (2.2-4.2) g/dL Albumin/Globulin Ratio 0.7 L (0.9-2.4) RATIO Urine Color (Yellow) Urine Clarity (Clear) Urine pH (5.0 - 8.0) Ur Specific [place] (1.002-1.030) Urine Protein (Negative) mg/dl Urine Glucose (UA) (Normal) mg/dl Urine Ketones (Negative) mg/dl Urine Occult Blood (Negative) /ul Urine Nitrite (Negative) Urine Bilirubin (Negative) mg/dL Urine Urobilinogen (Normal) mg/dl Ur Leukocyte Esterase (Negative) /ul Urine RBC (0-5) /hpf Urine WBC (0-5) /hpf Ur Squamous Epith Cells (5-10) /hpf Urine Bacteria (None Seen) /hpf Urine Mucus (<or=2+) /hpf Urine Opiates Screen POSITIVE H (< 300 ng/mL) Urine Methadone Screen NEGATIVE (< 300 ng/mL) Ur Barbiturates Screen NEGATIVE (< 200 ng/mL) Ur Phencyclidine Scrn NEGATIVE (< 25 ng/mL) Ur Amphetamines Screen NEGATIVE (<1000 ng/mL) U Methamphetamin-MDMA NEGATIVE (< 500 ng/mL) U Benzodiazepines Scrn NEGATIVE (< 200 ng/mL) Urine Cocaine Screen NEGATIVE (< 300 ng/mL) U Cannabinoids Screen NEGATIVE (< 50 ng/mL) Ur Drug Screen Comment Ethyl Alcohol HIV 1&2 Antibody (Nonreactive) 03/05/19 Range/Units 18:00 WBC (4.4-11.0) K/mm3 RBC (4.2-5.4) M/mm3 Hgb (12.0-15.0) g/dl Hct (37-47) % MCV (81-99) fL MCH (27.0-32.0) pg MCHC (32-36) g/gl RDW (11.6-14.6) % RDW Differential (35.1-43.9) fl Plt Count (150-450) K/mm3 MPV (6.2-12.0) fl Immature Gran % (Auto) (0.0-0.9) % Neut % (Auto) (47-70) % Lymph % (Auto) (19-41) % [place] % (Auto) (0-10) % Eos % (Auto) (0-5) % Baso % (Auto) (0-1) % Absolute Neuts (auto) (2.0-7.7) X10^3/uL Absolute Lymphs (auto) (0.83-4.51) X10^3/ul Total Counted Sodium (136-145) mmol/L Potassium (3.5-5.1) mmol/L Chloride (98-107) mmol/L Carbon Dioxide (21.0-32.0) mmol/L Anion Gap (5-15) BUN (7-18) mg/dL Creatinine (0.55-1.02) mg/dL Estim Creat Clear Calc ml/min Est GFR (MDRD) Af Amer (>60) mL/min Est GFR (MDRD) Non-Af (>60) mL/min BUN/Creatinine Ratio (10-20) RATIO Glucose (74-106) mg/dL Calcium (8.5-10.1) mg/dL Total Bilirubin (0.20-1.00) mg/dL AST (15-37) U/L ALT (13-56) U/L Alkaline Phosphatase (45-117) U/L Total Protein (6.4-8.2) g/dL Albumin (3.2-5.0) g/dL Globulin (2.2-4.2) g/dL Albumin/Globulin Ratio (0.9-2.4) RATIO Urine Color Yellow (Yellow) Urine Clarity Clear (Clear) Urine pH 6.0 (5.0 - 8.0) Ur Specific [place] 1.015 (1.002-1.030) Urine Protein Negative (Negative) mg/dl Urine Glucose (UA) Normal (Normal) mg/dl Urine Ketones Negative (Negative) mg/dl Urine Occult Blood 10 H (Negative) /ul Urine Nitrite Negative (Negative) Urine Bilirubin Negative (Negative) mg/dL Urine Urobilinogen Normal (Normal) mg/dl Ur Leukocyte Esterase 25 H (Negative) /ul Urine RBC 0-5 SEEN (0-5) /hpf Urine WBC 0 SEEN (0-5) /hpf Ur Squamous Epith Cells 0-5 SEEN (5-10) /hpf Urine Bacteria 0 SEEN (None Seen) /hpf Urine Mucus 0 SEEN (<or=2+) /hpf Urine Opiates Screen (< 300 ng/mL) Urine Methadone Screen (< 300 ng/mL) Ur Barbiturates Screen (< 200 ng/mL) Ur Phencyclidine Scrn (< 25 ng/mL) Ur Amphetamines Screen (<1000 ng/mL) U Methamphetamin-MDMA (< 500 ng/mL) U Benzodiazepines Scrn (< 200 ng/mL) Urine Cocaine Screen (< 300 ng/mL) U Cannabinoids Screen (< 50 ng/mL) Ur Drug Screen Comment Ethyl Alcohol HIV 1&2 Antibody (Nonreactive) Consultations 03/05/19 23:56 Consult: [facility] Routine Consulting Provider: Consulted Physician Type:: Other * Specify below * Reason for consult:: opiate abuse Operations: None Procedures: None Summary of Care Provided: The patient is a 43 year old F with a past medical history of bipolar disorder, asthma/COPD, tobacco dependence, allergic rhinitis, GERD, hepatitis C, history of alcohol abuse now sober for 5 years and polysubstance abuse with current use of fentanyl IV, at least 1 g daily, who presented to the [facility] office at [facility] [place] on 03/05/2019 requesting inpatient admission for medical stabilization for acute opiate withdrawal. Symptoms at admission included abdominal cramping with nausea, fatigue, mild restlessness, hot and cold flashes and diaphoresis. CBC was unremarkable. CMP was unremarkable. UA had no evidence of urinary tract infection. HIV was nonreactive. Hepatitis panel is still pending at the time of discharge. She was admitted to a medical surgical floor and the [facility] protocol for acute opiate withdrawal was instituted. She had a relatively smooth detox and was discharged home on 03/08/2019. She has a follow-up appointment with Dr. Felix Ashton on 03/18/2019 at 1:15 PM. PHYSICAL EXAM: GENERAL: alert, oriented X 3, Cooperative, NAD ORAL: moist mucosa, no mucosal lesions NECK: No JVD, supple, trachea midline LUNGS: CTA, symmetric chest expansion HEART: RRR, Normal S1 and S2, no rub, no gallop ABDOMEN: soft, NT, ND, BS present, no guarding with palpation EXTREMITIES: no edema, no cyanosis, no calf tenderness SKIN: No rashes, no breakdown NEUROLOGIC: no focal neurologic deficits PSYCH: appropriate, normal affect, pleasant This note was generated with [employer] dictation software. It may contain incorrect words, spelling, and punctuation that were not noted in checking the note before signing. - Physical Exam Vital Signs Temp Pulse Resp BP Pulse Ox 98.2 F 96 18 118/95 H 95 03/08/19 09:19 03/08/19 09:30 03/08/19 09:19 03/08/19 09:19 03/06/19 09:25 Oxygen Delivery Method Room Air Weight: 162 lb 7.691 oz Body Mass Index (BMI) 25.4 Intake and Output for Last 24 Hours 03/06/19 03/07/19 03/08/19 23:59 23:59 23:59 Intake Total 480 / 480 2260 / 2260 300 / 300 Balance 480 / 480 2260 / 2260 300 / 300 Discharge Activity: Return to Normal Activity May resume sexual activity in: No Restrictions Weight Bearing Status: Full weight bearing Call your doctor if you observe: Fever of 101 or Higher, Inability to urinate, Inability to have a bowel movement, Shortness of breath, Dizziness, Fainting spells, Uncontrolled pain Home Medications: Medications to take at Discharge Albuterol Inhaler [Ventolin Hfa] 2 puff INHALATION PRN PRN 03/05/19 Budesonide/Formoterol Fumarate [Symbicort 160-4.5 Mcg Inhaler] 2 puff INHALATION BID 03/05/19 Fluticasone 0.05% [Flonase Nasal [place]] 1 spray NASAL BID 03/05/19 Gabapentin 800 mg PO TID 03/05/19 Loratadine/Pseudoephedrine [Alavert D-12 Allergy-Sinus Tab] 1 tab PO DAILY 0 03/05/19 Montelukast Sodium [Singulair] 10 mg PO QHS 03/05/19 Pantoprazole Sodium [Protonix] 20 mg PO BID 03/05/19 Quetiapine Fumarate [Seroquel] 200 mg PO QHS 03/05/19 Fluoxetine [Prozac] 20 mg PO DAILY #30 cap 03/08/19 Ibuprofen [Motrin] 600 mg PO Q8H #90 tab 03/08/19 Nicotine [Nicoderm Cq] 21 mg TRANSDERM. DAILY #28 patch 03/08/19 Following Prescrptions Were Given to Patient: Fluoxetine [Prozac] 20 mg PO DAILY #30 cap Ibuprofen [Motrin] 600 mg PO Q8H #90 tab Nicotine [Nicoderm Cq] 21 mg TRANSDERM. DAILY #28 patch Primary Care Physician: [facility] Doctor,Out of [Primary Care Provider] - Please Follow Up With: Dr. Felix Ashton When: March 18 at 1:15 Disposition: Home Minutes spent on discharge:: 30 Medical Necessity - Tobacco Use Smoking Status: Current every day smoker Tobacco Use: Cigarettes Meaningful Use Info Meaningful Use Diagnoses (Choose all that apply): None applicable Code Visit Inpatient E&M: 82106 Disch Hosp
[2019-03-08 13:29] VITALS: BP 118/82; PULSE 95; RESP 18; TEMP 36.7; O2SAT 99
[2019-03-09 12:07] LABS: HEPATITIS B SURFACE AG Negative (Negative); Hepatitis A AB, Total Positive (Negative); Hepatitis B Core AB IgM Negative (Negative); Hepatitis B Core Ab Total Negative (Negative); Hepatitis C Ab >11.0 s/co ratio (0.0-0.9)
[2019-03-10 12:29] LABS: Hep B Surface Antibodies Reactive (.)
[2019-03-10 12:30] LABS: Hepatitis A IgM Antibody Negative (Negative)
== END 2019-03-08 13:41 | disposition home or self-care (01) | DRG 897 ==
LOC: ED 22:21 → MS3 23:07
PROVIDERS: Admitting Provider Family Medicine; Emergency Provider Emergency Medicine; Visit Provider Internal Medicine
DX: F11.23 Opioid dependence with withdrawal (principal); B18.2 Chronic viral hepatitis C; J44.9 Chronic obstructive pulmonary disease, unspecified; F17.210 Nicotine dependence, cigarettes, uncomplicated; K21.9 Gastro-esophageal reflux disease without esophagitis; F32.9 Major depressive disorder, single episode, unspecified; F41.9 Anxiety disorder, unspecified
CPT/HCPCS: 36415; 71046; 80053; 80307; 80320; 81001; 85025; 86703; 86704; 86705; 86706; 86708; 86709; 86803; 87340; 94640; 99283; 99406; A4216; G0480